=== PATIENT | female | born 1970 | race Two or more races ===

== ENCOUNTER 2016-12-21 09:14 | Emergency (ER) | payer OTHER ==
[2016-12-21 09:20] VITALS: BMI 25.4
--- NOTE | 2016-12-21 09:35 | PDOC ---
History of Present Illness - General Chief Complaint: Pain Stated Complaint: flank PAIN Time Seen by Provider: 12/21/16 09:23 - History of Present Illness Initial Comments: Ms. Flores is a 46 year old female with no significant past medical history of who presents to the emergency department with a one day history of severe abdominal pain and L flank pain. She rates it 9-10/10 and says that it comes and goes. The patient denies chest pain, shortness of breath, headache and dizziness. Denies fever, chills, nausea, vomit, diarrhea and constipation. Denies dysuria, frequency, urgency and hematuria. Allergies: NKDA Past surgical history: None Social history: Denies Past History - Past Medical History Allergies/Adverse Reactions: Allergies Allergy/AdvReac Type Severity Reaction Status Date / Time No Known Allergies Allergy Verified 12/21/16 09:17 Home Medications: Ambulatory Orders Bupropion HCl [Wellbutrin Xl -] 300 mg PO DAILY 12/21/16 Clonazepam [KlonoPIN] 0.5 mg PO TID PRN 12/21/16 Ibuprofen [Motrin -] 600 mg PO PRN PRN #21 tablet 12/21/16 Sertraline HCl [Zoloft] 200 mg PO DAILY 12/21/16 Zolpidem Tartrate [Ambien] 10 mg PO HS PRN 12/21/16 HTN: Yes (not on medication) Hypercholesterolemia: Yes (not on medication) Psychiatric Problems: Yes (depresson) - Psycho/Social/Smoking Cessation Hx Anxiety: No Suicidal Ideation: No Smoking Status: No Smoking History: Current every day smoker Have you smoked in the past 12 months: Yes Number of Cigarettes Smoked Daily: 1 Information on smoking cessation initiated: Yes 'Breaking Loose' booklet given: 12/21/16 Hx Alcohol Use: No Drug/Substance Use Hx: No Hx Substance Use Treatment: No Review of Systems - Review of Systems Comments:: 12/21/16 13:21 GENERAL/CONSTITUTIONAL: No fever or chills. No weakness. HEAD, EYES, EARS, NOSE AND THROAT: No change in vision. No ear pain or discharge. No sore throat. CARDIOVASCULAR: No chest pain or shortness of breath RESPIRATORY: No cough, wheezing, or hemoptysis. GASTROINTESTINAL: +1 episode of vomiting yesterday. No nausea, diarrhea or constipation. GENITOURINARY: +10/10 pain noted in LLQ and radiating down to groin. No dysuria , frequency, or change in urination. MUSCULOSKELETAL: No joint or muscle swelling or pain. No neck or back pain. SKIN: No rash NEUROLOGIC: No headache, vertigo, loss of consciousness, or change in strength/ sensation. ENDOCRINE: No increased thirst. No abnormal weight change HEMATOLOGIC/LYMPHATIC: No anemia, easy bleeding, or history of blood clots. ALLERGIC/IMMUNOLOGIC: No hives or skin allergy. *Physical Exam - Vital Signs Last Vital Signs Temp Pulse Resp BP Pulse Ox 98.2 F 84 18 147/93 100 12/21/16 09:17 12/21/16 09:17 12/21/16 09:17 12/21/16 09:17 12/21/16 09:17 - Physical Exam Comments: 12/21/16 13:22 GENERAL: Awake, alert, and fully oriented, in no acute distress HEAD: No signs of trauma, normocephalic, atraumatic EYES: PERRLA, EOMI, sclera anicteric, conjunctiva clear ENT: Auricles normal inspection, hearing grossly normal, nares patent, oropharynx clear without exudates. Moist mucosa NECK: Normal ROM, supple, no lymphadenopathy, JVD, or masses LUNGS: No distress, speaks full sentences, clear to auscultation bilaterally HEART: Regular rate and rhythm, normal S1 and S2, no murmurs, rubs or gallops, peripheral pulses normal and equal bilaterally. ABDOMEN: +Tender in LLQ to palpation, also tender on L flank to palpation. Soft , normoactive bowel sounds. No guarding, no rebound. No masses EXTREMITIES: Normal inspection, Normal range of motion, no edema. No clubbing or cyanosis. NEUROLOGICAL: Cranial nerves II through XII grossly intact. Normal speech, normal gait, no focal sensorimotor deficits SKIN: Warm, Dry, normal turgor, no rashes or lesions noted. ED Treatment Course - LABORATORY CBC & Chemistry Diagram: 12/21/16 10:00 12/21/16 10:00 Medical Decision Making - Medical Decision Making 12/21/16 13:22 Ms. Flores presents suspicious for kidney stone. Labs as noted below. Renal CT ordered to confirm, showed no evidence of renal pathology or stone. Read noted some mesenteric stranding in R lower quadrant. Will d/c to home with pain control with instructions to f/u with PCP in 2 days. Laboratory Results - last 24 hr 12/21/16 12/21/16 12/21/16 10:00 10:00 10:00 WBC 5.4 RBC 4.23 Hgb 13.4 Hct 40.0 MCV 94.6 MCH 31.7 MCHC 33.6 RDW 14.1 Plt Count 196 MPV 9.4 Neutrophils % 73.0 Lymphocytes % 18.9 Monocytes % 7.4 Eosinophils % 0.2 Basophils % 0.5 Sodium 139 Potassium 3.7 Chloride 104 Carbon Dioxide 29 D Anion Gap 6 L BUN 12 D Creatinine 0.8 D Creat Clearance w eGFR > 60 Random Glucose 90 Calcium 8.2 L Total Bilirubin 0.5 AST 17 ALT 18 D Alkaline Phosphatase 91 Total Protein 7.3 Albumin 3.6 Urine Color Yellow Urine Appearance Cloudy Urine pH 5.0 Urine Protein Negative Urine Glucose (UA) Negative Urine Ketones Negative Urine Blood 2+ H Urine Nitrite Negative Urine Bilirubin Negative Urine Urobilinogen Negative Ur Leukocyte Esterase Trace Urine RBC 20 Urine WBC 8 Ur Epithelial Cells Many Urine Mucus Few Urine HCG, Qual 12/21/16 10:05 WBC RBC Hgb Hct MCV MCH MCHC RDW Plt Count MPV Neutrophils % Lymphocytes % Monocytes % Eosinophils % Basophils % Sodium Potassium Chloride Carbon Dioxide Anion Gap BUN Creatinine Creat Clearance w eGFR Random Glucose Calcium Total Bilirubin AST ALT Alkaline Phosphatase Total Protein Albumin Urine Color Urine Appearance Urine pH Urine Protein Urine Glucose (UA) Urine Ketones Urine Blood Urine Nitrite Urine Bilirubin Urine Urobilinogen Ur Leukocyte Esterase Urine RBC Urine WBC Ur Epithelial Cells Urine Mucus Urine HCG, Qual Negative 12/21/16 13:24 *DC/Admit/Observation/Transfer Diagnosis at time of Disposition: Abdominal pain Qualifiers: Abdominal location: left lower quadrant Qualified Code(s): R10.32 - Left lower quadrant pain - Discharge Dispostion Disposition: HOME - Patient Instructions Printed Discharge Instructions: DI for Abdominal Pain-Adult Additional Instructions: Please follow-up with your pcp in the next 2 days. Return if any increase in pain, fever, or other symptoms.
[2016-12-21] MEDS ORDERED: ONDANSETRON 4 MG/2 ML VIAL IVPB ONE (09:48)
[2016-12-21] MEDS ORDERED: morphine CARPU-JECT 2 MG/1 ML DISP.SYRIN IVPUSH ONE (09:48)
[2016-12-21] MEDS ORDERED: morphine CARPU-JECT 10 MG/1 ML DISP.SYRIN ONE (09:57)
[2016-12-21] MEDS ORDERED: ONDANSETRON 4 MG/2 ML VIAL ONE (09:58)
--- NOTE | 2016-12-21 10:02 | PDOC ---
Attending Attestation - Resident Resident Name: Bismark Childress - ED Attending Attestation I have performed the following: I have examined & evaluated the patient, The case was reviewed & discussed with the resident, I agree w/resident's findings & plan, Exceptions are as noted - HPI HPI: 46 yo F history depression presents with abrupt onset L flank pain since yesterday, waxing and waning, severe at times. Pain is colicky, sharp, radiating to the L groin. No recent illness, fever, chills, dysuria. Urine has been dark yellow recently. No prior history of kidney stones. - Physicial Exam PE: GENERAL: Awake, alert, and fully oriented. Appears uncomfortable. HEAD: No signs of trauma EYES: PERRLA, EOMI, sclera anicteric, conjunctiva clear ENT: Auricles normal inspection, hearing grossly normal, nares patent, oropharynx clear without exudates. Moist mucosa NECK: Normal ROM, supple, no lymphadenopathy, JVD, or masses LUNGS: Breath sounds equal, clear to auscultation bilaterally. No wheezes, and no crackles HEART: Regular rate and rhythm, normal S1 and S2, no murmurs, rubs or gallops ABDOMEN: Soft, +L side and LLQ tenderness, normoactive bowel sounds. + Guarding. No rebound. No masses EXTREMITIES: Normal range of motion, no edema. No clubbing or cyanosis. No cords, erythema, or tenderness NEUROLOGICAL: Cranial nerves II through XII grossly intact. Normal speech, normal gait SKIN: Warm, Dry, normal turgor, no rashes or lesions noted. - Medical Decision Making DDx includes kidney stone, diverticulitis, pyelo. Will obtain labs, UA, CT r/o stone.
[2016-12-21] MEDS ORDERED: SODIUM CHLORIDE 1,000 ML IV STA (10:05)
[2016-12-21 10:15] LABS: URINE APPEARANCE CLOUDY; URINE BILIRUBIN NEGATIVE (NEGATIVE); URINE BLOOD 2+ (NEGATIVE); URINE COLOR YELLOW; URINE GLUCOSE (UA) NEGATIVE (NEGATIVE); URINE KETONE NEGATIVE (NEGATIVE); URINE LEUK ESTERASE TRACE (NEGATIVE); URINE NITRITE NEGATIVE (NEGATIVE); URINE PROTEIN NEGATIVE (NEGATIVE); URINE UROBILINOGEN NEGATIVE mg/dL (0.2-1.0)
[2016-12-21 10:18] LABS: URINE MUCUS FEW; URINE RBC 20 /hpf (0-3); URINE WBC 8 /hpf (3-5)
[2016-12-21] MEDS ORDERED: KETOROLAC TROMETHAMINE 30 MG/1 ML VIAL IVPUSH ONE (10:21)
[2016-12-21 10:23] LABS: BASOPHIL 0.5 % (0-2.0); EOSINOPHIL 0.2 % (0-4.5); MCH 31.7 pg (25.7-33.7); MCHC 33.6 g/dl (32.0-36.0); MEAN CELL VOLUME 94.6 fl (80-96); MEAN PLT VOLUME 9.4 fl (7.5-11.1); PLATELET COUNT 196 K/MM3 (134-434); RDW 14.1 % (11.6-15.6); WHITE BLOOD COUNT 5.4 K/mm3 (4.0-10.0)
[2016-12-21] MEDS ORDERED: KETOROLAC TROMETHAMINE 30 MG/1 ML VIAL ONE (10:28)
[2016-12-21 10:35] LABS: ALBUMIN 3.6 g/dl (3.4-5.0); ANION GAP 6 (8-16); CALCIUM 8.2 mg/dL (8.5-10.1); CO2 29 mmol/L (21-32); CREATININE 0.8 mg/dL (0.55-1.02); GLUCOSE,RANDOM 90 mg/dL (74-106); SGOT/AST 17 U/L (15-37); SGPT/ALT 18 U/L (12-78)
[2016-12-21 10:37] LABS: ALK PHOS 91 U/L (45-117); BILIRUBIN,TOTAL 0.5 mg/dL (0.2-1.0); TOT PROT 7.3 g/dl (6.4-8.2)
[2016-12-21 11:55] VITALS: TEMP 98.7
[2016-12-21 13:46] VITALS: BP 117/67; PULSE 72
== END 2016-12-21 13:46 | disposition home or self-care (01) ==
LOC: JER 09:14
PROC: 3E0337Z Introduction of Electrolytic and Water Balance Substance into Peripheral Vein, Percutaneous Approach (ICD-10-PCS; principal; 2016-12-21)
PROC: 3E033NZ Introduction of Analgesics, Hypnotics, Sedatives into Peripheral Vein, Percutaneous Approach (ICD-10-PCS; 2016-12-21)
PROC: 3E033GC Introduction of Other Therapeutic Substance into Peripheral Vein, Percutaneous Approach (ICD-10-PCS; 2016-12-21)
PROC: 3E0333Z Introduction of Anti-inflammatory into Peripheral Vein, Percutaneous Approach (ICD-10-PCS; 2016-12-21)
DX: R10.32 Left lower quadrant pain (principal); I10 Essential (primary) hypertension; E78.00 Pure hypercholesterolemia, unspecified; F41.9 Anxiety disorder, unspecified; F17.210 Nicotine dependence, cigarettes, uncomplicated
CPT/HCPCS: 36415; 74176; 80053; 81003; 81015; 84703; 85025; 96361; 96374; 96375; 99282-25